=== PATIENT | female | born 1990 | race Caucasian/White ===

== ENCOUNTER → 2023-01-17 | Outpatient (CLI) | payer OTHER ==
[~2023-01-17] MED LIST: APAP325T4 PO; IBUP80TA PO; LIDOCAINE 1% MDV 20ML VIAL As Ordered ONE; METH-1164 PO; MUCI600T31 PO; MULTTAB20 PO; TRAM50TA2 PO
[2023-01-17 12:37] VITALS: BP 114/60; TEMP 98.9; O2SAT 100
[2023-01-17 13:42] LABS: BASO % 0.3 % (0.0-1.0); EOS # 0.2 10^3/uL (0.0-0.5); EOS % 2.5 % (0.0-3.0); HEMATOCRIT 37.6 % (36.0-47.0); HEMOGLOBIN 12.5 g/dl (12.0-15.5); LYMPH # 1.6 10^3/uL (1.5-5.0); LYMPH % 26.4 % (24.0-44.0); MEAN CORPUSCULAR HEMOGLOBIN 29.1 pg (27.0-33.0); MEAN CORPUSCULAR HGB CONC 33.2 g/dl (32.0-36.5); MEAN CORPUSCULAR VOLUME 87.6 fl (80.0-96.0); MONO # 0.5 10^3/uL (0.0-0.8); MONO % 7.9 % (2.0-8.0); NEUTROPHILS # 3.8 10^3/uL (1.5-8.5); NEUTROPHILS % 62.6 % (36.0-66.0); PLATELET COUNT, AUTOMATED 223 10^3/uL (150-450); RED BLOOD COUNT 4.29 10^6/uL (4.00-5.40); WHITE BLOOD COUNT 6.1 10^3/uL (4.0-10.0)
== END ==
LOC: M IRPRO 12:20
PROVIDERS: ATTEND Specialist
DX: D75.89 Other specified diseases of blood and blood-forming organs (principal)

== ENCOUNTER 2023-10-17 20:20 | Emergency (ER) | payer OTHER ==
[~2023-10-17] VITALS: Ht 157.5 cm; Wt 50.0 kg
[~2023-10-17 20:20] MED LIST changes: -LIDOCAINE 1% MDV 20ML VIAL As Ordered ONE
[2023-10-17 22:32] VITALS: TEMP 97.6; O2SAT 100
[2023-10-17 23:29] VITALS: BP 131/77
[2023-10-17] MEDS: LIDOCAINE 5% (LIDODERM) PATCH TD ONE (23:55)
[2023-10-18] MEDS: diazePAM 5MG TABLET PO ONE (00:13)
[2023-10-18] MEDS: KETOROLAC 30 MG/ML 1ML VIAL IM ONE (00:14)
== END 2023-10-18 00:56 | disposition home or self-care (01) ==
LOC: M ED 20:20
DX: M54.16 Radiculopathy, lumbar region (principal); G43.909 Migraine, unspecified, not intractable, without status migrainosus; F10.10 Alcohol abuse, uncomplicated; Z88.5 Allergy status to narcotic agent; Z79.810 Long term (current) use of selective estrogen receptor modulators (SERMs); Z79.1 Long term (current) use of non-steroidal anti-inflammatories (NSAID); Z79.899 Other long term (current) drug therapy
CPT/HCPCS: 96372; 99283; J1885

== ENCOUNTER 2023-12-09 10:02 | Emergency (ER) | payer OTHER ==
[~2023-12-09] VITALS: Ht 157.5 cm; Wt 50.9 kg
[2023-12-09 12:00] LABS: BASO % 0.2 % (0.0-1.0); EOS # 0.1 10^3/uL (0.0-0.5); EOS % 1.7 % (0.0-3.0); LYMPH # 2.2 10^3/uL (1.5-5.0); LYMPH % 44.8 % (24.0-44.0); MEAN CORPUSCULAR HEMOGLOBIN 29.7 pg (27.0-33.0); MEAN CORPUSCULAR HGB CONC 33.3 g/dl (32.0-36.5); MONO # 0.4 10^3/uL (0.0-0.8); MONO % 7.5 % (2.0-8.0); NEUTROPHILS # 2.2 10^3/uL (1.5-8.5); NEUTROPHILS % 45.8 % (36.0-66.0); PLATELET COUNT, AUTOMATED 258 10^3/uL (150-450); RED BLOOD COUNT 4.38 10^6/uL (4.00-5.40); WHITE BLOOD COUNT 4.8 10^3/uL (4.0-10.0)
[2023-12-09 12:23] LABS: ALBUMIN 3.9 G/DL (3.2-5.2); ALKALINE PHOSPHATASE 59 U/L (46-116); ALT/SGPT 16 U/L (7.0-40); AST/SGOT 15 U/L (<34); BILIRUBIN,TOTAL 0.4 MG/DL (0.3-1.2); BLOOD UREA NITROGEN 11 MG/DL (9-23); CALCIUM LEVEL 9.2 MG/DL (8.5-10.1); CARBON DIOXIDE LEVEL 28 MMOL/L (20-31); CHLORIDE LEVEL 107 MMOL/L (98-107); CREATININE FOR GFR 0.64 MG/DL (0.55-1.30); GLOMERULAR FILTRATION RATE > 60.0 (>60); GLUCOSE, FASTING 84 MG/DL (60-100); POTASSIUM SERUM 4.2 MMOL/L (3.5-5.1); SODIUM LEVEL 140 MMOL/L (136-145)
[2023-12-09] MEDS: KETOROLAC 30 MG/ML 1ML VIAL IV ONE ×2 (13:01→15:22)
[2023-12-09] MEDS: ACETAMINOPHEN 500 MG TAB PO ONE (13:01)
[2023-12-09] MEDS: GABAPENTIN 300 MG CAP PO ONE (14:06)
[2023-12-09] MEDS ORDERED: TRAM25TA2 PO (15:31)
[2023-12-09 16:04] VITALS: BP 105/70; TEMP 97.6; O2SAT 100
== END 2023-12-09 16:12 | disposition home or self-care (01) ==
LOC: M ED 10:02
DX: M54.17 Radiculopathy, lumbosacral region (principal); Z79.899 Other long term (current) drug therapy; Z88.5 Allergy status to narcotic agent
CPT/HCPCS: 70450; 70486; 72148; 80053; 81001; 85025; 96374; 96376; 99283; J1885

== ENCOUNTER → 2024-02-18 | Outpatient (CLI) | payer OTHER ==
[~2024-02-18] MED LIST changes: +GASTROGRAFIN SOLUTION 30ML As Ordered ONE; +ISOVUE-370 76% 100ML VIAL As Ordered ONE; +TRAM25TA2 PO
== END ==
LOC: M RAD 09:43
PROVIDERS: ATTEND Physician Assistant
DX: R91.8 Other nonspecific abnormal finding of lung field (principal); R63.4 Abnormal weight loss; R61 Generalized hyperhidrosis; T07.XXXA Unspecified multiple injuries, initial encounter; T14.8XXA Other injury of unspecified body region, initial encounter; Y93.9 Activity, unspecified; Y92.9 Unspecified place or not applicable
CPT/HCPCS: 71260; 74177; Q9963; Q9967